=== PATIENT | female | born 1950 | race Caucasian/White ===

== ENCOUNTER → 2017-09-26 08:33 | Outpatient (CLI) | payer MEDICARE ==
[2013-08-26 14:58] VITALS: BMI 47.6
[~2017-09-26 08:33] MED LIST: AUGMENTIN 875-11 TAB PO; BAYER CHEWABLE81 MG PO; BETAPACE 80 MG80 MG PO; CALTRATE 600 M600 M1 PO; DUONEB 2.5-0.5 M3 ML UPD; FISH OIL 1,0001 CA1 PO; GLUCOPHAGE500 MG PO; HYDROCHLOROTHIA25 MG PO; LIPITOR40 MG PO; MUCINEX1200 MG/BO PO; OMEPRAZOLE40 MG PO; PLAVIX75 MG PO; PROTONIX40 MG PO; RESTORIL15 MG PO; SINGULAIR10 MG PO; TYLENOL325 MG; VITAMIN B-12100 MCG PO; VITAMIN B-122500 MCG PO; VITAMIN D3400 UNI1 PO; XANAX0.25 MG PO; ZESTRIL40 MG PO; ZOLOFT50 MG PO
[2017-10-23 09:47] VITALS: BMI 42.8
== END | disposition home or self-care (01) ==
LOC: D.CT 08:33
DX: I65.23 Occlusion and stenosis of bilateral carotid arteries (principal)

== ENCOUNTER 2017-10-11 07:27 | Outpatient (CLI) | payer MEDICARE ==
[~2017-10-11] VITALS: Ht 157.5 cm; Wt 101.8 kg
--- NOTE | ~2017-10-11 | OP ---
PATIENT NAME: KUSUM CHURCH MEDICAL RECORD: [id number] :48 LOCATION:D.CAT ADMISSION DATE: SURGEON: JOSE MANUEL TRUJILLO MD DATE OF OPERATION: 10/11/2017 PROCEDURES: 1. Left heart catheterization. 2. Selective coronary angiography. 3. Left ventriculogram. INDICATION: Angina and coronary artery disease. PROCEDURE IN DETAIL: After informed consent was obtained and after detailed explanation of risks, benefits as well as alternative therapies, the patient elected to proceed with angiogram. The right radial area was prepped and draped in normal sterile fashion. The right radial artery was cannulated via modified Seldinger technique with placement of 5-Mexican sheath. All catheters exchanged through this sheath. FINDINGS: The left ventriculogram was performed in standard 30-degree JANSEN view, reveals preserved cardiac wall motion, ejection fraction 50%. SELECTIVE CORONARY ANGIOGRAPHY: 1. Left main showed no significant angiographic disease. 2. Left anterior descending has moderate irregularities, but no flow-limiting stenosis. 3. The left circumflex has mild irregularities, but no flow-limiting stenosis. 4. Right coronary artery has moderate irregularities, but no flow-limiting stenosis. OVERALL IMPRESSION: Minimal coronary artery disease is present. No flow-limiting stenosis. Continue medical management of the coronary artery disease and cardiac risk factors. TRANSINT:[id number] Voice Confirmation ID: [id number] DOCUMENT ID: [id number] JOSE MANUEL TRUJILLO MD CC: GUILLERMO SMALLS [id number] DICTATION DATE: 10/11/17 0945 ENTRY LEVEL ACCOUNT MANAGER: 10/11/17 1305 DEP CLI 10/11/17 [id number] [place] [address]
--- NOTE | ~2017-10-11 | HEMODYNAMI ---
PATIENT:KUSUM CHURCH MEDICAL RECORD: [id number] : 48 LOCATION:D.CAT ADMISSION DATE: 10/11/17 Generatedon:10/11/20179:44 Patient name: KUSUM LORENZO Patient #: [id number] SN: : 1950 Date of study: 10/11/2017 Page: Of Hemodynamic Procedure Report Patient Data Patient Demographics Procedure consent was obtained First Name: KUSUM Gender: Female Last Name: MARSHA LORENZO : 1950 [facility] Initial: EDWIN Age: 67 year(s) Patient #: [id number] Race: Unknown Additional ID: [id number] Contact details Address: [address] [place] [address] State: [place] City: [place] Zip code: [address] Past Medical History Allergies: No known allergies Admission Admission Data Admission Date: 10/11/2017 Admission Time: 7:27 Admit Source: Other Lab Results Lab Result Date: 10/11/2017 Lab Result Time: 8:10 Biochemistry Name Units Result Min Max BUN mg/dl 26 --(----)-* 7 18 Creatinine mg/dl 1 --(--*-)-- 0.6 1.3 CBC Name Units Result Min Max Hematocrit % 39.8 -*(----)-- 42 54 Hemoglobin g/dl 12.7 -*(----)-- 13.5 17.5 Procedure Procedure Types Cath Procedure Diagnostic Procedure LHC LHC w/Coronaries Miscellaneous Procedures Moderate Sedation up to 15 minutes Procedure Description Procedure Date Procedure Date: 10/11/2017 Procedure Start Time: 9:34 Procedure End Time: 9:44 Procedure Staff Name Function Jace Stark MD Performing Physician Callum Crump RT Monitor Rebecca Irizarry RT Scrub Dimas Guidry RN Nurse Procedure Data Cath Procedure Fluoroscopy Diagnostic fluoroscopy Total fluoroscopy Time: 1.3 time: 1.3 min min Diagnostic fluoroscopy Total fluoroscopy dose: 519 dose: 519 mGy mGy Contrast Material Contrast Material Type Amount (ml) Isovue 300 52 Entry Location Entry Primary Successful Side Size Upsize Upsize Entry Closure Succes sful Closure Location (Fr) 1 (Fr) 2 (Fr) Remarks Device Remarks Femoral Right 5 Fr Exoseal artery Estimated blood loss: 5 ml Diagnostic catheters Device Type Used For End Catheter Placement MULTIPACK Pigtail 5 Fr Procedure catheter MULTIPACK JL 4.0 5Fr Procedure catheter MULTIPACK 3DRC 5Fr Procedure catheter Procedure Complications No complications Procedure Medications Medication Administration Route Dosage 0.9% NaCl I.V. 100 ml/hr Oxygen NC 2 l/min Heparin Flush Bag added to field 2 bags (1000units/500ml NS) Lidocaine 2% added to field 20 Benadryl I.V. 50 mg Radial Cocktail I.A. 1 syringe (Verapomil 2mg/Nitro 400mcg/Heparin 1500units) Versed I.V. 2 mg Fentanyl I.V. 50 mcg Hemodynamics Rest HGB: 12.7 (g/dl) Heart Rate: 48 (bpm) Snapshots Pre Cath Intra NCS Post Cath Vital Signs Time Heart Resp SPO2 etCO2 NIBP (mmHg) Rhythm Pain Sedation Rate (ipm) (%) (mmHg) Status Level (bpm) 9:24:10 48 14 99 38.2 163/77(136) NSR 0 (11) 10(A) , No pain 9:29:52 51 19 92 8.2 147/61(113) NSR 0 (11) 10(A) , No pain 9:34:47 52 16 95 28.5 145/73(118) NSR 0 (11) 9(A) , No pain 9:40:33 58 16 94 24 169/75(122) NSR 0 (11) 9(A) , No pain Medications Time Medication Route Dose Verified Delivered Reason Notes Eff ectiveness by by 9:22:41 0.9% NaCl I.V. 100 Terrance Terrance Per ml/hr Harinder Pizano physician RN RN 9:22:54 Oxygen NC 2 l/min Terrance Terrance Per Harinder Pizano physician RN RN 9:23:15 Heparin Flush added 2 bags Terrance Terrance used for Bag to Harinder Pizano procedure (1000units/500ml field RN RN NS) 9:23:30 Lidocaine 2% added 20ml Terrance Terrance for local to vial Lorigan Lorigan anesthetic field RN RN 9:23:48 Benadryl I.V. 50 mg Terrance Terrance Per Harinder Pizano physician RN RN 9:24:04 Radial Cocktail I.A. 1 Terrance Terrance used for (Verapomil syringe Lorigan Lorigan procedure 2mg/Nitro RN RN 400mcg/Heparin 1500units) 9:30:20 Versed I.V. 2 mg Terrance Terrance for Lorigan Lorigan sedation RN RN 9:30:59 Fentanyl I.V. 50 mcg Terrance Terrance for Lorigan Lorigan sedation RN inside sales lead Log Time Note 9:06:09 Informed consent obtained and on chart 9:06:13 Admit Source: Other 9:06:33 Diagnostic Cath status Elective 9:06:35 Dimas Guidry RN sent for patient. Start room use. 9:06:36 Time tracking: Regular hours 9:06:39 Plan of Care:Hemodynamics will remain stable., Cardiac rhythm will remain stable., Comfort level will be maintained., Respiratory function will remain adequate., Patient/ family verbilizes understanding of procedure., Procedure tolerated without complication., Recovers from procedure without complications.. 9:06:48 H&P Date Dictated: 09/27/2017 Within 30 days and on chart., H&P Addendum completed by physician on day of procedure. (MUST COMPLETE FOR ALL OUTPATIENTS). 9:07:03 Patient NPO since Midnight. 9:07:11 Patient allergic to No known allergies 9:09:28 Lab Result : Creatinine 1 mg/dl 9:09:28 Lab Result : BUN 26 mg/dl 9:09:28 Lab Result : Hematocrit 39.8 % 9:09:28 Lab Result : Hemoglobin 12.7 g/dl 9:11:36 Patient received from Pre/Post Procedure Room to CCL 2 Alert and oriented. Tansferred to table in Supine position. 9:11:46 Warm blankets applied, and edda hugger turned on for patient comfort. 9:11:47 Correct patient and procedure confirmed by team. 9:11:48 ECG and BP/O2 sat monitors applied to patient. 9:12:32 Pre-procedure instructions explained to patient. 9:12:32 Pre-op teaching completed and patient verbalized understanding. 9:12:33 Family in waiting room. 9:12:36 Is the patient allergic to Iodine/contrast media? No. 9:22:41 0.9% NaCl 100 ml/hr I.V. was administered by Terrance Pizano RN; Per physician; 9::54 Oxygen 2 l/min NC was administered by Terrance Pizano RN; Per physician; 9:23:02 Vital chart was started 9:23:15 Heparin Flush Bag (1000units/500ml NS) 2 bags added to field was administered by Terrance Pizano RN; used for procedure; 9::30 Lidocaine 2% 20ml vial added to field was administered by Terrance Pizano RN; for local anesthetic; 9:23:48 Benadryl 50 mg I.V. was administered by Terrance Pizano RN; Per physician; 9:24:04 Radial Cocktail (Verapomil 2mg/Nitro 400mcg/Heparin 1500units) 1 syringe I.A. was administered by Terrance Pizano RN; used for procedure; 9:26:49 Is patient on blood thinner?Yes 9:26:52 ACC The patient was administered the following blood thiners within the last 24 hours: ACCPlavix 9:26:59 Patient diabetic? Yes. 9:27:07 If diabetic: On Metformin? Yes 9:27:10 Previous problem with sedation/anesthesia? No ? 9:27:16 Snore? Yes 9:27:19 Sleep apnea? No 9:27:21 Deviated septum? No 9:27:22 Opens mouth fully? Yes 9:27:22 Sticks out tongue? Yes 9:27:32 Airway obstruction? Yes Asthma 9:27:37 Dentures? Yes ? 9:27:43 Pre procedure: right dorsailis pedis pulse 1+ Palpable, but thready & weak; easily obliterated 9:27:46 Modified Eugenio's test Ulnar < 7 seconds 9:27:48 Patient pain scale 0/10 ?. 9:27:56 IV patent on arrival in left forearm with 0.9% NaCl at [facility]. 9:28:00 Lab results completed and on chart. 9:28:07 Right Radial & Right Groin area was prepped with chlora-prep and draped in sterile fashion 9:28:09 Alarms reviewed by R. N. 9::09 Sharps counted by scrub and verified by R.N. 9:28:46 Baseline sample Acquired. 9:29:07 Rhythm: sinus rhythm 9:29:09 Full Disclosure recording started 9:29:16 Use device set Radial Dx or PCI 9:29:18 ACIST Hand Control (72729) opened to sterile field. 9:29:18 ACIST Manifold (33340) opened to sterile field. 9:29:20 Medline Cath Pack ([id number]) opened to sterile field. 9:29:21 ACIST Syringe (32052) opened to sterile field. 9:29:21 Bag Decanter (2002S) opened to sterile field. 9:29:22 Tegaderm 4 x 4 (1626W) opened to sterile field. 9:29:26 MBrace Wrist Support ([id number]) opened to sterile field. 9:29:27 DIAGNOSTIC WIRE .035 260cm J wire (039993) opened to sterile field. 9:29:27 SHEATH 6FR Slender ([id number]) opened to sterile field. 9:29:31 NEEDLE Cook 21G 4cm Radial ([id number]) opened to sterile field. 9:29:38 Physician arrived 9::39 --------ALL STOP TIME OUT------ 9:29:39 Final Timeout: patient, procedure, and site verified with staff and physician. All members of the team are in agreement. 9:29:41 Right Radial & Right Groin site verified by team. 9:29:43 Physical assessment completed. ASA score P 2 - A patient with mild systemic disease as per Jace Stark MD. 9:29:46 Sedation plan: IV Moderate Sedation Medication:Versed, Fentanyl 9:30:20 Versed 2 mg I.V. was administered by Terrance Pizano RN; for sedation; 9:30:26 Zero performed for pressure channel P1 9:30:59 Fentanyl 50 mcg I.V. was administered by Terrance Pizano RN; for sedation; 9:33:10 Procedure started. 9:34:26 Local anesthetic to right radial artery with Lidocaine 2% by Jace Stark MD.INITIAL ACCESS ONLY 9:35:04 unable to gain access to the radial artery. Moving to femoral approach. 9:35:08 Local anesthetic to right femoral artery with Lidocaine 2% by Jace Stark MD.ADDITIONAL ACCESS 9:35:14 SHEATH 5FR Bellflower (RAQ966) opened to sterile field. 9:35:23 Use device set Multipack Set 9:35:27 DIAGNOSTIC Multipack 5Fr catheter set ([id number]) opened to sterile field. 9:35:56 A 5 Fr sheath was inserted into the Right Femoral artery 9:36:07 A MULTIPACK Pigtail 5 Fr catheter was advanced over the wire and used for Procedure. 9:36:37 LV gram done using JANSEN 9:36:39 Injector settings: Ml/sec: 10, Volume: 20, 9:37:01 EF : 50 % 9:37:02 Catheter exchanged over wire. 9:37:27 A MULTIPACK JL 4.0 5Fr catheter was advanced over the wire and used for Procedure. 9:37:36 LCA angiography performed. 9:39:23 Catheter exchanged over wire. 9:39:38 A MULTIPACK 3DRC 5Fr catheter was advanced over the wire and used for Procedure. 9:39:48 RCA angiography performed. 9:39:50 Catheter removed. 9:39:56 EXOSEAL 5Fr (EX500) opened to sterile field. 9:40:20 Sheath removed intact; hemostasis achieved with Exoseal to the Right Femoral artery. 9:40:22 Procedure ended.(Physican Out) 9:41:33 Fluoroscopy time 01.30 minutes. 9:41:37 Fluoroscopy dose: 519 mGy 9:41:37 Flurop Dose total: 519 9:42:10 Contrast amount:Isovue 300 52ml. 9:42:13 Sharps counted by scrub and verified by R.N. 9:42:36 Insertion/operative site no bleeding no hematoma. 9:42:38 Post-op/insertion site Right Femoral artery dressed using a 4 x 4 and Tegaderm. 9:42:48 Post right femoral artery:stable, soft, clean and dry 9:42:50 Post Procedure Pulses reassessed and unchanged 9:42:52 Post-procedure physical assessment completed. ASA score P 2 - A patient with mild systemic disease as per Jace Stark MD. 9:42:55 Post procedure rhythm: unchanged. 9:42:56 Estimated blood loss: 5 ml 9:42:59 Post procedure instruction explained to patient.Patient verbalizes understanding. 9:42:59 Patient needs reinforcement of post procedure teaching. 9:43:14 Procedure type changed to Cath procedure, Diagnostic procedure, LHC, LHC w/Coronaries, Miscellaneous Procedures, Moderate Sedation up to 15 minutes 9:43:38 Procedure and supply charges have been captured, reviewed, submitted and are correct. 9:43:40 Procedure Complication : No complications 9:44:05 Vital chart was stopped 9:44:06 See physician's report for complete and final results. 9:44:08 Report given to Pre/Post Procedure Room. 9:44:10 Patient transfered to Pre/Post Procedure Room with Stretcher. 9:44:12 Procedure ended. 9:44:12 Full Disclosure recording stopped 9:44:15 End room use (Document Last) Device Usage Item Name Manufacture Quantity Catalog Hospital Part Current Minima l Lot# / Number Charge Number Stock Stock Serial# Code ACIST Hand Acist 1 04190 217207 116901 143200 5 Control Medical (31214) Systems Inc ACIST Acist 1 74745 689627 515557 067060 5 Manifold Medical (95731) Systems Inc Medline Cath Cardinal 1 [id number] 216324 00780 735821 5 Pack Health ([id number]) ACIST Acist 1 87121 734266 990521 460417 20 Syringe Medical (53950) Systems Inc Bag Decanter Microtek 1 2002S 438535 25270 280121 5 (2001S) Medical Inc. Tegaderm 4 x 3M 1 1626W 680047 851599 629000 5 4 (1626W) MBrace Wrist Advanced 1 140-0250-00 516180 95125 076688 5 Support Vascular ([id number]) Dynamics DIAGNOSTIC St Sky 1 329601 655417 813829 993140 30 WIRE .035 260cm J wire (292975) SHEATH 6FR Terumo 1 [id number] 602055 371828 280862 40 Slender ([id number]) NEEDLE Cook MedTech Solutions Medical 1 A50403 405926 034372 691425 5 21G 4cm Radial (O54691) SHEATH 5FR Terumo 1 BFY524 978476 566522 581171 40 Bellflower (CRW142) DIAGNOSTIC Cardinal 1 QG0416 419256 29271 502802 30 Multipack Health 5Fr catheter set (XU4755) MULTIPACK Cardinal 1 349133 5 Pigtail 5 Fr Health catheter MULTIPACK JL Cardinal 1 820386 5 4.0 5Fr Health catheter MULTIPACK Cardinal 1 616350 5 3DRC 5Fr Health catheter EXOSEAL 5Fr Cardinal 1 EX500 334126 113068 539816 10 (EX500) Health Signature Audit [place] Stage Time Signature Unsigned Intra-Procedure 10/11/2017 Callum Crump 9:44:29 AM RT(R) Signatures Monitor : Callum Crump RT Signature : Date : Time : [id number] [place] [address]
[~2017-10-11 07:27] MED LIST changes: -CALTRATE 600 M600 M1 PO; -FISH OIL 1,0001 CA1 PO; -LIPITOR40 MG PO; +LIPITOR80 MG PO; -OMEPRAZOLE40 MG PO; -VITAMIN B-12100 MCG PO; -VITAMIN B-122500 MCG PO; -VITAMIN D3400 UNI1 PO
[2017-10-11] MEDS ORDERED: VITAMIN B-12100 MCG PO (07:48)
[2017-10-11] MEDS ORDERED: CALTRATE 600 M600 M1 PO (07:49)
[2017-10-11] MEDS ORDERED: PRILOSEC PO (07:51)
[2017-10-11] MEDS ORDERED: VITAMIN D3400 UNI1 PO (07:52)
[2017-10-11] MEDS ORDERED: FISH OIL 1,0001 CA1 PO (08:03)
[2017-10-11] MEDS ORDERED: BAYER CHEWABLE81 MG PO (08:04)
[2017-10-11 08:24] VITALS: BP 128/52; Ht 157.5 cm; Wt 101.8 kg
[2017-10-11 08:24] LABS: BASOPHILS 0.1 % (0-2); EOSINOPHILS 2.9 % (0-7); HEMATOCRIT 39.8 % (36.0-48.0); HEMOGLOBIN 12.7 g/dL (12-16); IMMATURE GRANULOCYTES 0.3 % (0-5); LYMPHOCYTES 25.7 % (15-50); MCH 29.4 pg (26.0-34.0); MCHC 31.9 g/dL (31.0-37.0); MCV 92.1 fL (80.0-100.0); MEAN PLATELET VOLUME 11.1 fL (7.4-10.4); MONOCYTES 9.3 % (2-11); NEUTROPHILS 61.7 % (40-80); PLATELET COUNT 197 10x3/uL (130-400); RBC 4.32 10x6/uL (4.00-5.40); RDW 13.5 % (11.5-14.5); WBC 7.5 10x3/uL (4.8-10.8)
[2017-10-11 08:36] LABS: ANION GAP 14.3 mmol/L (8-16); CALCIUM 8.8 mg/dL (8.5-10.1); CARBON DIOXIDE 26.8 mmol/L (21.0-32.0); POTASSIUM - SERUM 4.1 mmol/L (3.5-5.1)
== END 2017-10-11 12:00 | disposition home or self-care (01) ==
LOC: D.CATH 07:27
PROVIDERS: Internal Medicine Interventional Cardiology
DX: I25.119 Atherosclerotic heart disease of native coronary artery with unspecified angina pectoris (principal); Z01.812 Encounter for preprocedural laboratory examination

== ENCOUNTER 2017-10-18 05:00 | Inpatient (IN) | payer MEDICARE, OTHER ==
[2017-10-17 15:52] LABS: HEMATOCRIT 40.6 % (36.0-48.0); HEMOGLOBIN 12.6 g/dL (12-16); MCH 29.1 pg (26.0-34.0); MCV 93.8 fL (80.0-100.0); MEAN PLATELET VOLUME 10.8 fL (7.4-10.4); RBC 4.33 10x6/uL (4.00-5.40); RDW 13.5 % (11.5-14.5); WBC 8.1 10x3/uL (4.8-10.8)
[2017-10-17 16:07] LABS: APPEARANCE CLEAR (CLEAR); BILIRUBIN NEGATIVE (NEGATIVE); COLOR YELLOW (YELLOW); GLUCOSE NEGATIVE (NEGATIVE); KETONE NEGATIVE (NEGATIVE); NITRITE NEGATIVE (NEGATIVE); PROTEIN NEGATIVE (NEGATIVE); UROBILINOGEN NORMAL (NORMAL)
[2017-10-17 16:12] LABS: APTT 27.5 SECONDS (22.8-39.4); BACTERIA FEW /hpf (NONE SEEN); EPITHELIAL CELLS 0-5 /hpf (0-5); INR 0.95 (0.85-1.17); PROTIME 12.3 SECONDS (11.6-15.0); WHITE CELLS - URINE OCC /hpf (0-5)
[2017-10-17 17:13] LABS: ALBUMIN 3.3 g/dL (3.4-5.0); ANION GAP 14.5 mmol/L (8-16); BILIRUBIN - TOTAL 0.3 mg/dL (0.2-1.3); CALCIUM 8.3 mg/dL (8.5-10.1); CARBON DIOXIDE 26.1 mmol/L (21.0-32.0); CREATININE - SERUM 0.9 mg/dL (0.6-1.3); POTASSIUM - SERUM 4.6 mmol/L (3.5-5.1); PROTEIN - SERUM 6.8 g/dL (6.4-8.2)
[~2017-10-18] VITALS: Ht 157.5 cm; Wt 106.1 kg
[2017-10-18] VITALS (51 sets, daily range): BP systolic 102–158; BP diastolic 35–78; BMI 41.3; BMI 41.9
--- NOTE | ~2017-10-18 | HP ---
PATIENT: KUSUM CHURCH MEDICAL RECORD: [id number] ACCOUNT: [id number] LOCATION:[facility] D.CV01 : [birth year] ADMISSION DATE: 10/18/17 HISTORY AND PHYSICAL EXAMINATION KUSUM Paula (67yo, F) ID# [id number]. Date/Time10/09/2017 01:56ZGNAS1950Service Dept.NP_[facility] ClinicProviderEDSHALONDA SMALLS MDInsuranceMed Primary: [place] Insurance # : [id number] Referring Provider Name : ROSSANA ARNDT Employer Name : RETIRED Med Secondary: AARP (MEDICARE SUPPLEMENT) Insurance # : [id number] Referring Provider Name : ROSSANA ARNDT Employer Name : RETIRED Prescription: ORX - Member is eligible. Chief Complaint Carotid stenosis referral for carotid stenosis Patient's Care Team Referring Provider (): ROSSANA ARNDT: [address] [place] [phone], , Patient's Pharmacies [facility] ([facility]): [address] [place] [address] [place] [address], , Vitals BP:140/54 sitting L arm 10/09/2017 01:34 pm 154/64 sitting R arm 10/09/2017 01:34 pmBP Cuff Size:adult 10/09/2017 01:33 pm adult 10/09/2017 01:34 pmHR:80,reg 10/09/2017 01:34 pmHt:5 ft 2 in 10/09/2017 01:34 pmWt:224 lbs 10/09/2017 01:34 pmNotes:had left carotid done several years ago with Dr Olvera, now with R sided stenosis 10/09/2017 01:35 pmBMI:41 10/09/2017 01:34 pmAllergies Reviewed Allergies NKDASome allergies listed in Document: #[id number] could not be added to this patient's chart. Please review this document and add these allergies to the patient's chart manually as needed.Medications Reviewed Medications ALPRAZolam 0.5 mg wwvgij31/12/17 filledPRESCRIPTION SOLUTIONSclopidogrel 75 mg lgixsn28/30/17 filledPRESCRIPTION SOLUTIONShydroCHLOROthiazide 25 mg /30/17 filledPRESCRIPTION SOLUTIONSLipitor 40 mg tablet Take 1 tablet(s) every day by oral route.10/03/17 enteredKathy WilsonmetFORMIN 500 mg tablet 1 tab twice daily08/10/17 filledPRESCRIPTION SOLUTIONSmontelukast 10 mg tablet start filledKathy WilsonPriLOSEC 40 mg capsule,delayed release Take 1 capsule(s) every day by oral route.10/03/17 enteredKathy Wilsonsertraline 100 mg tablet start filledKathy Wilsonsotalol 80 mg dbfgve15/30/17 filledPRESCRIPTION SOLUTIONStemazepam 15 mg oxtdkqh07/14/17 filledPRESCRIPTION SOLUTIONSProblems Reviewed Problems Bilateral carotid artery stenosis - Onset: 10/03/2017 Family History Discussed Family History HISTORY AND PHYSICAL [id number] KUSUM CHURCH Mother- Myocardial infarction ( age: 75)Social History Discussed Social History Cardiology Smoking Status: Former smoker (Notes: quit 2007) High Cholesterol: Y High blood pressure: Y Overweight: Y Obese: Y Diabetes: Y Surgical History Reviewed Surgical History Carotid Endarterectomy - 09/11/2007 - LEFT PRACTICING MD ANESTHESIOLOGIST History (not configured) Past Medical History Discussed Past Medical History Asthma: Y Carotid Stenosis: Y Depression: Y Diabetes: Y GERD: Y Hyperlipidemia: Y Hypertension: Y Stroke: Y Documents for Discussion N/A Screening None recorded. HPI Cerebral Vascular Disease Reported by patient. Associated Symptoms: no headache; no nausea; no vomiting; no tinnitus; no difficulty speaking; no lethargy; no fever; no chills; no palpitations; no syncope; no loss of consciousness carotid artery disease ROS Patient reports muscle aches and arthralgias/joint pain but reports no muscle weakness, no back pain, and no swelling in the extremities. She reports no abnormal mole, no jaundice, and no rashes; bruising secondary to antiplatelet therapy. She reports no fever, no night sweats, no significant weight gain, no significant weight loss, and no exercise intolerance. She reports no dry eyes, no irritation, and no vision change. She reports no difficulty hearing and no ear pain. She reports no frequent nosebleeds and no nose/sinus problems. She repo r ts no sore throat, no bleeding gums, no snoring, no dry mouth, no mouth ulcers, no oral abnormalities, and no teeth problems. She reports no jugular vein distension and no swollen glands. She reports no chest pain, no arm pain on exertion, no shortness of breath when walking, no shortness of breath when lying down, no palpitations, and no known heart murmur. She reports no cough, no wheezing, no shortness of breath, and no coughing up blood. She reports no abdominal pain, no vomiting, normal appetite, no d i arrhea, not vomiting blood, no nausea, and no constipation. She reports no incontinence, no difficulty urinating, no hematuria, and no increased frequency. She reports no loss of consciousness, no weakness, no numbness, no seizures, no dizziness, and no h e adaches. She reports no depression, no sleep disturbances, feeling safe in relationship, and no alcohol abuse. She reports no fatigue. She HISTORY AND PHYSICAL [id number] KUSUM CHURCH reports no swollen glands and no bruising. She reports no runny nose, no sinus pressure, no itching, no hives, and n o frequent sneezing. ROS as noted in the HPI Physical Exam Patient is a 67-year-old female. Constitutional: General Appearance healthy-appearing and obese. Level of Distress NAD. Ambulation ambulating normally. Cardiovascular: Apical Impulse not displaced or no thrill. Heart Auscultation normal s1 and s2; no murmurs, rubs, or gallops; and RRR. Arterial Pulses no abdominal aorta bruits, femoral bruits, or popliteal bruits and 2+ bilateral, carotid 2+ bilateral, femoral 2+ bilate ral, popliteal 2+ bilateral, and dorsalis pedis 2+ bilateral. Edema no edema or varicosities. Lungs: Repiratory Effort no dyspnea. Percussion no hyperresonance or dullness or flatness. Auscultation no wheezing, rhonchi, or rales / crackles and breathing sounds normal, good air movement, and CTA except as noted. Abdomen: Bowl Sounds normal. Inspection and Palpation no tenderness, guarding, masses, or rebound tenderness and soft and non-distended. Liver non-tender and no hepatomegaly. Spleen non-tender and no splenomegaly. Hernia none palpable. Musculoskeletal System: Gait And Stance normal gait and stance. Digits and Nails normal nails and no cyanosis. Joints, Bones, and Muscles limited ROM and abnormal strength. Neurologic: Cranial Nerves grossly intact. Reflexes DTRs 2+ bilaterally throughout. Sensation grossly intact. Lymph Nodes: Lymph Nodes no cervical LAD, supraclavicular LAD, axillary LAD, or inguinal LAD. Eyes: Lids and Conjunctivae no discharge or pallor and non-injected. Pupils PERRLA. Cornea grossly intact; decreased peripheral vision OD. EOM EOMI. Lens clear. Sclera non-icteric. Neck: Neck no masses or enlarged lymph nodes and supple, trachea midline, and carotid bruits (bilaterally). Thyroid no enlargement or nodules and non-tender. Skin: Inspection and Palpation no rash, lesions, ulcers, jaundice, or abnormal nevi. Assessment / Plan carotid artery disease the patient would benefit from right carotid endarterectomy Will need cardiac catheterization Prior to surgery 1. Bilateral carotid artery stenosis I65.23: Occlusion and stenosis of bilateral carotid arteries Discussion Notes I have discussed the patient's disease process with her in detail as well as the HISTORY AND PHYSICAL [id number] KUSUM CHURCH alternative modes of therapy. we discussed right carotid endarterectomy including the expected benefits and risks which include bleeding, infection, stroke, , and the imponderables. She unde rstands all the above and wishes to proceed with planned procedure. due to her history of atrial fibrillation I think she would benefit from cardiac catheterization prior to surgery due to severe cerebral atherosclerosis as well. I discussed her case with Dr. Ledesma who agrees that she would benefit from cardiac catheterization GUILLERMO SMALLS MD at 1058 CC: [id number] DICTATION DATE: 10/09/17 1330 MECHANICAL LABORATORY TECHNICIAN: KACY 10/17/17 1206 ADM [address] [place] [address]
--- NOTE | ~2017-10-18 | OP ---
PATIENT NAME: KUSUM CHURCH MEDICAL RECORD: [id number] :48 LOCATION:[facility] D.CV02 ADMISSION DATE:10/18/17 SURGEON: GUILLERMO PRABHAKAR MD DATE OF OPERATION: 10/18/2017 SURGEON: Guillermo Prabhakar MD ANESTHESIA: Local lidocaine 1%. OPERATION PERFORMED: Placement of thoracic vent chest tube. PREOPERATIVE DIAGNOSIS: Pneumothorax. POSTOPERATIVE DIAGNOSIS: Pneumothorax. INDICATION FOR OPERATION: Large pneumothorax. FINDINGS AT OPERATION: Pneumothorax. ESTIMATED BLOOD LOSS: None. The patient postop right carotid endarterectomy with a left pneumothorax. Due to her hypoxemia, she had an urgent chest tube placed utilizing a thoracic vent. DESCRIPTION OF PROCEDURE: The left chest was prepped and draped in a sterile field utilizing ChloraPrep, 1% lidocaine was infiltrated in the skin, 1% lidocaine was infiltrated deeper in the third intercostal space. A small incision was made and the thoracic vent placed in the left hemithorax, secured with a good result. Chest x-ray pending. TRANSINT:[id number] Voice Confirmation ID: [id number] DOCUMENT ID: [id number] GUILLERMO PRABHAKAR MD at 1311 CC: [id number] DICTATION DATE: 10/18/17 1233 SKILLED TRADES TEACHER: 10/18/17 1332 ADM IN [place] [id number]
--- NOTE | ~2017-10-18 | OP ---
PATIENT NAME: KUSUM CHURCH MEDICAL RECORD: [id number] LOCATION:[facility] D.[id number] ADMISSION DATE:10/18/17 SURGEON: ASIM SMALLS MD DATE OF OPERATION: 10/18/2017 SURGEON: Asim Smalls MD ANESTHESIA: General endotracheal, Dr. Gilliland. OPERATION PERFORMED: Right carotid endarterectomy with patch angioplasty. PREOPERATIVE DIAGNOSIS: Severe right internal carotid artery stenosis. POSTOPERATIVE DIAGNOSIS: Severe right internal carotid artery stenosis. INDICATION FOR OPERATION: Severe right internal carotid artery stenosis. FINDINGS AT OPERATION: Severe greater than 90% right internal carotid artery stenosis. ESTIMATED BLOOD LOSS: Less than 100 mL. DESCRIPTION OF PROCEDURE: After informed consent, adequate preoperative medication and evaluation, the patient was brought to the operating room, placed on the table in the supine position. After induction of general endotracheal anesthesia and application of appropriate monitoring devices, the right neck and chest were prepped and draped in a sterile field, utilizing Betadine scrub, alcohol, and Betadine solution. A Betadine-impregnated drape was also used. An oblique incision was made in the skin crease. Dissection carried down the fascia. Hemostasis maintained with electrocautery. Facial vein was identified and divided. Utilizing sharp dissection, the common carotid, internal and external carotid arteries were dissected free from surrounding structures, protecting the neurological structures. The patient was given a calculated dose of heparin. Clamps were applied after 3 minutes and no EEG changes. The arteriotomy was made and extended with Pulliam scissors. Artery underwent endarterectomy sharply. Artery underwent extensive debridement and irrigation. Utilizing a CorMatrix vascular patch, a running 7-0 Prolene suture, the arteriotomy was closed with patch angioplasty technique. All maneuvers to remove trapped air were performed. The clamps were removed sequentially. There were no EEG changes. The patient was given a calculated dose of protamine to reverse the heparin. Hemostasis was achieved. A #7 Brian-Phillips drain was left in the depth of wound and brought out through the base of the neck. Neck was again irrigated. Instrument count and sponge count were correct times 2. Neck was closed in layers utilizing 3-0 Vicryl on the platysma, 5-0 subcuticular Monocryl on the skin. Sterile dressings were applied. The patient tolerated the procedure well and was transferred to the [facility] ICU in stable condition. TRANSINT:[id number] Voice Confirmation ID: [id number] DOCUMENT ID: [id number] OPERATIVE REPORT [id number] KUSUM CHURCH EDWARD MD at 1311 CC: [id number] DICTATION DATE: 10/18/17 1107 SALON MANAGER: 10/18/17 1258 ADM IN [id number] [place] [address]
[~2017-10-18 05:00] MED LIST changes: +CALTRATE 600 M600 M1 PO; +FISH OIL 1,0001 CA1 PO; +LIPITOR40 MG PO; -LIPITOR80 MG PO; +OMEPRAZOLE40 MG PO; +VITAMIN B-12100 MCG PO; +VITAMIN B-122500 MCG PO; +VITAMIN D3400 UNI1 PO
[2017-10-19] VITALS (39 sets, daily range): BP systolic 104–138; BP diastolic 37–64
[2017-10-19 06:37] LABS: BASOPHILS 0 % (0-2); EOSINOPHILS 0.3 % (0-7); HEMATOCRIT 34.6 % (36.0-48.0); HEMOGLOBIN 10.4 g/dL (12-16); IMMATURE GRANULOCYTES 0.5 % (0-5); LYMPHOCYTES 16.9 % (15-50); MCHC 30.1 g/dL (31.0-37.0); MEAN PLATELET VOLUME 10.6 fL (7.4-10.4); MONOCYTES 9.1 % (2-11); NEUTROPHILS 73.2 % (40-80); PLATELET COUNT 178 10x3/uL (130-400); RBC 3.59 10x6/uL (4.00-5.40); RDW 14.2 % (11.5-14.5)
[2017-10-19 06:47] LABS: MCV 96.4 fL (80.0-100.0)
[2017-10-19 07:00] LABS: ALBUMIN 2.5 g/dL (3.4-5.0); ANION GAP 10.3 mmol/L (8-16); BILIRUBIN - TOTAL 0.23 mg/dL (0.2-1.3); CALCIUM 7.4 mg/dL (8.5-10.1); CARBON DIOXIDE 28.7 mmol/L (21.0-32.0); PROTEIN - SERUM 5.7 g/dL (6.4-8.2)
[2017-10-19 07:02] LABS: CREATININE - SERUM 1.9 mg/dL (0.6-1.3)
[2017-10-20] VITALS (24 sets, daily range): BP systolic 100–143; BP diastolic 40–63
[2017-10-21] VITALS (21 sets, daily range): BP systolic 111–150; BP diastolic 39–61
[2017-10-22] VITALS (42 sets, daily range): BP systolic 92–160; BP diastolic 34–92
[2017-10-22 07:14] LABS: HEMATOCRIT 33.8 % (36.0-48.0); HEMOGLOBIN 10.5 g/dL (12-16); MCH 29.3 pg (26.0-34.0); MCHC 31.1 g/dL (31.0-37.0); MCV 94.4 fL (80.0-100.0); MEAN PLATELET VOLUME 10.9 fL (7.4-10.4); RBC 3.58 10x6/uL (4.00-5.40); RDW 13.6 % (11.5-14.5); WBC 9.2 10x3/uL (4.8-10.8)
[2017-10-22 07:26] LABS: ALBUMIN 2.6 g/dL (3.4-5.0); ANION GAP 10.9 mmol/L (8-16); BILIRUBIN - TOTAL 0.33 mg/dL (0.2-1.3); CALCIUM 8.4 mg/dL (8.5-10.1); CARBON DIOXIDE 29.8 mmol/L (21.0-32.0); CREATININE - SERUM 1.5 mg/dL (0.6-1.3); POTASSIUM - SERUM 4.7 mmol/L (3.5-5.1); PROTEIN - SERUM 6.2 g/dL (6.4-8.2)
[2017-10-22 18:04] LABS: APPEARANCE CLEAR (CLEAR); BILIRUBIN NEGATIVE (NEGATIVE); COLOR YELLOW (YELLOW); GLUCOSE NEGATIVE (NEGATIVE); KETONE NEGATIVE (NEGATIVE); NITRITE NEGATIVE (NEGATIVE); PROTEIN NEGATIVE (NEGATIVE); SPECIFIC GRAVITY 1.015 (1.005-1.020); UROBILINOGEN NORMAL (NORMAL)
[2017-10-23] VITALS (28 sets, daily range): BP systolic 107–155; BP diastolic 44–88; Ht 157.5 cm; Wt 106.1 kg
== END 2017-10-23 12:59 | disposition home or self-care (01) | DRG 38 ==
LOC: D.CVICU 05:00 → D.SDCHOLD 05:00 → D.CVICU 10:42
PROVIDERS: Family Medicine; Internal Medicine Cardiovascular Disease
PROC: 03UK0JZ Supplement Right Internal Carotid Artery with Synthetic Substitute, Open Approach (ICD-10-PCS; 2017-10-18)
PROC: 0W9B30Z Drainage of Left Pleural Cavity with Drainage Device, Percutaneous Approach (ICD-10-PCS; 2017-10-18)
PROC: 03CK0ZZ Extirpation of Matter from Right Internal Carotid Artery, Open Approach (ICD-10-PCS; principal; 2017-10-18 07:30)
DX: I65.23 Occlusion and stenosis of bilateral carotid arteries (principal); J95.811 Postprocedural pneumothorax; G72.81 Critical illness myopathy; R41.0 Disorientation, unspecified; N28.9 Disorder of kidney and ureter, unspecified; R09.02 Hypoxemia; Y83.8 Other surgical procedures as the cause of abnormal reaction of the patient, or of later complication, without mention of misadventure at the time of the procedure; I10 Essential (primary) hypertension; I48.0 Paroxysmal atrial fibrillation; E11.9 Type 2 diabetes mellitus without complications; E78.5 Hyperlipidemia, unspecified

== ENCOUNTER → 2018-05-22 07:58 | Outpatient (CLI) | payer MEDICARE ==
[2017-10-23 09:47] VITALS: BMI 42.8
== END | disposition home or self-care (01) ==
LOC: D.US 07:58
DX: I65.23 Occlusion and stenosis of bilateral carotid arteries (principal)

== ENCOUNTER → 2020-12-14 13:47 | Outpatient (CLI) | payer MEDICARE | END | disposition home or self-care (01) | LOC: D.US 13:47 | DX: G45.3 Amaurosis fugax (principal) ==